=== PATIENT | male | born 1990 | race African-American/Black ===

== ENCOUNTER 2022-11-12 20:03 | Emergency (ER) | payer SELFPAY ==
[2022-11-12] MEDS ORDERED: Ondansetron ODT 4 MG TAB ONE (22:22)
== END 2022-11-12 23:50 | disposition home or self-care (01) ==
LOC: CSHERS 20:03
DX: K52.9 Noninfective gastroenteritis and colitis, unspecified (principal); F17.290 Nicotine dependence, other tobacco product, uncomplicated
CPT/HCPCS: 99283; Q0162